=== PATIENT | female | born 1985 | race Two or more races ===

== ENCOUNTER 2023-04-18 14:02 | Outpatient (REF) | payer OTHER, SELFPAY ==
--- NOTE | 2023-04-18 14:08 | EMG_ITS ---
Chief complaint: 6 months of pain in her right lateral forearm She works at a [employer] [place], repetitive movements, denies numbness, denies wrist drop, denies neck pain. Reason for referral: Evaluate for radial neuropathy Referred by: Dr. Anabelle Belcher Procedure done: Right upper extremity NCS/EMG Precautions and/or limitations: None The limb temperature was monitored continuously and remained between 32-36 degrees C during the performance of the NCS. Nerve Conduction Studies Anti Sensory Summary Table ?Stim Site NR Onset (ms) Norm Onset (ms) Peak (ms) Norm Peak (ms) O-P Amp (?V) Norm O-P Amp Site1 Site2 Delta-0 (ms) Dist (cm) Jack (m/s) Norm Jack (m/s) Right Median Anti Sensory (2nd Digit) Wrist ? 2.7 3.5 <3.6 20.2 >10 Wrist 2nd Digit 2.7 14.0 52 Right Radial Anti Sensory (Thumb) Forearm ? 1.6 2.2 <3.1 26.1 Forearm Thumb 1.6 0.0 Right Ulnar Anti Sensory (5th Digit) Wrist ? 1.5 3.1 <3.7 18.0 >15.0 Wrist 5th Digit 1.5 14.0 93 Motor Summary Table ?Stim Site NR Onset (ms) Norm Onset (ms) O-P Amp (mV) Norm O-P Amp iAmp (mV) Amp (1st) (%) Site1 Site2 Delta-0 (ms) Dist (cm) Jack (m/s) Norm Jack (m/s) Right Median Motor (Abd Poll Brev) Wrist ? 3.7 <3.9 11.1 >4.5 13.7 100.0 Elbow Wrist 3.2 16.5 52 >45 Elbow ? 6.9 12.0 15.1 108.1 Right Radial Motor (Arm) Wrist ? 0.9 <2.5 3.5 >1.7 5.5 100.0 Wrist Arm 0.9 4.0 44 Elbow ? 4.1 3.3 5.6 94.3 Mid Forearm Wrist 3.2 19.0 59 >60 Below Spiral Groove ? 5.4 3.5 5.9 100.0 Elbow Mid Forearm 1.3 12.0 92 Above Spiral Groove NR Axilla Mid Forearm 0.0 Right Ulnar Motor (Abd Dig Minimi) Wrist ? 2.7 <3.0 9.7 >5 11.4 100.0 B Elbow Wrist 2.7 15.0 56 >45 B Elbow ? 5.4 9.1 10.9 93.8 A Elbow B Elbow 1.5 10.0 67 >45 A Elbow ? 6.9 9.6 11.3 99.0 EMG ?Side Muscle Nerve Root Ins Act Fibs Psw Amp Dur Poly Recrt Int Pat Comment Right 1stDorInt Ulnar C8-T1 Nml Nml Nml Nml Nml 0 Nml Complete Right FlexCarRad Median C6-7 Nml Nml Nml Nml Nml 0 Nml Complete Right Biceps Musculocut C5-6 Nml Nml Nml Nml Nml 0 Nml Complete Right Triceps Radial C6-7-8 Nml Nml Nml Nml Nml 0 Nml Complete Right Deltoid Axillary C5-6 Nml Nml Nml Nml Nml 0 Nml Complete Right BrachioRad Radial C5-6 Nml Nml Nml Nml Nml 0 Nml Complete Right ExtIndicis Radial (Post Int) C7-8 Nml Nml Nml Nml Nml 0 Nml Complete Right ExtDigCom Radial (Post Int) C7-8 Nml Nml Nml Nml Nml 0 Nml Complete Paraspinal EMG ?Side Muscle Nerve Root Ins Act Fibs Psw Comment Right Cervical Upper Rami Nml Nml Nml Right Cervical Mid Rami Nml Nml Nml Right Cervical Lower Rami Nml Nml Nml FINDINGS: Right radial motor nerve showed drop in amplitude/no response above spiral groove. All other nerves tested were within normal. Concentric needle EMG was performed in selected muscles of the right upper extremity and cervical paraspinals. Study did not reveal signs of electric abnormalities as shown in the table below. IMPRESSION: 1. This is an abnormal study. 2. 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 3. There is no electrodiagnostic evidence for median neuropathy, ulnar neuropathy, brachial plexopathy, or cervical radiculopathy. Thank you for your kind referral. Billie Manuel MD, VALERIE Board Certified, [place] [employer] (ABPMR) Board Certified, [place] [employer] Electro[employer] (ABEM) [place] [id number] [facility]
== END 2023-04-18 14:03 | disposition home or self-care (01) ==
LOC: HO.NEURO 14:02
PROVIDERS: Visit Provider Orthopaedic Surgery
DX: G56.31 Lesion of radial nerve, right upper limb (principal)
CPT/HCPCS: 95886; 95909

== ENCOUNTER → 2023-04-18 14:08 | Outpatient (BNV) | payer OTHER, SELFPAY | PROVIDERS: Visit Provider Physical Medicine & Rehabilitation | DX: G56.31 Lesion of radial nerve, right upper limb (principal) | CPT/HCPCS: 95886; 95909 ==